=== PATIENT | male | born 1960 | race Caucasian/White ===

== ENCOUNTER 2020-10-20 06:30 | Emergency (ER) | payer OTHER ==
[~2020-10-20 06:30] MED LIST: FLOMAX 0.4 MG0.4 MG PO; HUMALOG 75100 UNIT/M SC; LEVAQUIN750 MG PO; LIPITOR40 M1 PO; LOPRESSOR25 MG PO; METFORMIN HCL500 MG PO; NAPROSYN375 MG PO; NORCO 5-325 TA1 EACH PO; NORVASC5 MG PO; ONDANSETRON ODT4 MG PO; PRINIVIL10 MG PO; PROTONIX 40MG T40 MG PO
[2020-10-20 07:28] LABS: BASOPHIL 0.9 % (0-2); EOSINOPHIL 0.1 % (0-5); HCT 43.1 % (42.0-52.0); HGB 14.1 g/dl (13.2-18.0); LYMPHOCYTE 14.7 % (15-48); MCH 29.6 pg (25.0-31.0); MCHC 32.7 g/dL (32.0-36.0); MCV 90.4 fL (78.0-100.0); MONOCYTE 8.2 % (0-12); MPV 11.5 fL (6.0-9.5); NEUTROPHIL 75.7 % (41-80); NRBC 0; PLT 171 K/uL (150-400); RBC 4.77 M/uL (4.70-6.00); RDW 12.9 % (11.5-14.0)
[2020-10-20 07:45] LABS: ALBUMIN 3.5 g/dL (3.4-5.0); ALKALINE PHOSHATASE 64 U/L (46-116); ALT 15 U/L (16-63); AST 19 U/L (15-37); BILIRUBIN - TOTAL 0.4 mg/dL (0.2-1.0); BUN 27 mg/dL (7-18); BUN/CREAT RATIO (CALC) 23.3 RATIO; CHLORIDE 106 mmol/L (98-107); CO2 (BICARBONATE) 27 mmol/L (21-32); CPK 129 U/L (39-308); CREATININE 1.16 mg/dL (0.67-1.17); GLOBULIN (CALCULATION) 3.4 g/dL; GLUCOSE 103 mg/dL (74-106); LIPASE 98 U/L (73-393); MAGNESIUM 1.6 mg/dL (1.8-2.4); POTASSIUM 4.7 mmol/L (3.5-5.1); TOTAL PROTEIN 6.9 g/dL (6.4-8.2)
[2020-10-20 07:47] LABS: INR 0.96 (0.9-1.2); PROTHROMBIN TIME 12.2 SECONDS (11.8-13.4); PTT 23.6 SECONDS (24.4-34.7)
[2020-10-20 08:33] LABS: BILIRUBIN NEGATIVE (NEGATIVE); BLOOD NEGATIVE Ery/uL (NEGATIVE); CLARITY CLEAR (CLEAR); COLOR YELLOW (YELLOW); GLUCOSE (U) 3+ mg/dL (NORMAL); LEUKOCYTES NEGATIVE Leu/uL (NEGATIVE); NITRITE NEGATIVE (NEGATIVE); PROTEIN TRACE (LOW) mg/dL (NEGATIVE); SPECIFIC GRAVITY 1.025 (1.001-1.030); UROBILINOGEN 0.2 mg/dL (0.2-1.0); pH 5.5 (5.0-9.0)
[2020-10-20 08:35] LABS: AMPHETAMINES NEGATIVE (NEGATIVE); BARBITURATES NEGATIVE (NEGATIVE); ECSTASY (MDMA) NEGATIVE (NEGATIVE); MARIJUANA (THC) NEGATIVE (NEGATIVE); METHADONE NEGATIVE (NEGATIVE); OPIATES NEGATIVE (NEGATIVE); OXYCODONE NEGATIVE (NEGATIVE)
[2020-10-20 08:55] LABS: BACTERIA TRACE; URINARY RBC RARE
== END 2020-10-20 13:45 | disposition other institution (70) ==
LOC: FER 06:30
PROVIDERS: Emergency Medicine
DX: I63.9 Cerebral infarction, unspecified (principal); Z20.822 Contact with and (suspected) exposure to COVID-19
CPT/HCPCS: 36415; 70450; 71045; 80053; 80305; 81001; 82550; 83690; 83735; 84145; 84484; 85025; 85610; 85730; 93005; G0480; J2405; U0002

== ENCOUNTER 2021-01-25 19:40 | Emergency (ER) | payer OTHER ==
[2021-01-25 21:05] LABS: EOSINOPHIL 2.1 % (0-5); HCT 41.6 % (42.0-52.0); HGB 13.6 g/dl (13.2-18.0); LYMPHOCYTE 32.2 % (15-48); MCH 29.9 pg (25.0-31.0); MCHC 32.7 g/dL (32.0-36.0); MCV 91.4 fL (78.0-100.0); MONOCYTE 13.3 % (0-12); MPV 11.8 fL (6.0-9.5); NEUTROPHIL 51.1 % (41-80); NRBC 0; PLT 171 K/uL (150-400); RBC 4.55 M/uL (4.70-6.00); RDW 13.2 % (11.5-14.0); WBC 7.2 K/uL (4.0-10.5)
[2021-01-25 21:26] LABS: ALBUMIN 3.5 g/dL (3.4-5.0); BILIRUBIN - TOTAL 0.5 mg/dL (0.2-1.0); CREATININE 1.27 mg/dL (0.67-1.17); GLOBULIN (CALCULATION) 3.2 g/dL; MAGNESIUM 2.2 mg/dL (1.8-2.4); POTASSIUM 4.4 mmol/L (3.5-5.1); TOTAL PROTEIN 6.7 g/dL (6.4-8.2)
== END 2021-01-25 22:45 | disposition home or self-care (01) ==
LOC: FER 19:40
PROVIDERS: Emergency Medicine
DX: E11.22 Type 2 diabetes mellitus with diabetic chronic kidney disease (principal); E11.65 Type 2 diabetes mellitus with hyperglycemia; I12.9 Hypertensive chronic kidney disease with stage 1 through stage 4 chronic kidney disease, or unspecified chronic kidney disease; N18.9 Chronic kidney disease, unspecified
CPT/HCPCS: 36415; 70450; 71045; 80053; 83735; 83880; 84443; 85025; 93005; J1940

== ENCOUNTER 2021-09-18 15:46 | Emergency (ER) | payer OTHER ==
[2021-09-18 16:59] LABS: BASOPHIL 1.1 % (0-2); EOSINOPHIL 1.6 % (0-5); HGB 14.7 g/dl (13.2-18.0); LYMPHOCYTE 30.7 % (15-48); MCH 30.2 pg (25.0-31.0); MCHC 33.4 g/dL (32.0-36.0); MCV 90.5 fL (78.0-100.0); MONOCYTE 10.4 % (0-12); MPV 10.7 fL (6.0-9.5); NEUTROPHIL 55.9 % (41-80); NRBC 0; PLT 205 K/uL (150-400); RBC 4.86 M/uL (4.70-6.00); RDW 12.8 % (11.5-14.0); WBC 8.9 K/uL (4.0-10.5)
[2021-09-18 17:07] LABS: INR 0.96 (0.9-1.2); PROTHROMBIN TIME 12.2 SECONDS (11.8-13.4); PTT 24.8 SECONDS (24.4-34.7)
[2021-09-18 17:17] LABS: ALBUMIN 3.7 g/dL (3.4-5.0); BILIRUBIN - TOTAL 0.5 mg/dL (0.2-1.0); BUN/CREAT RATIO (CALC) 18.1 RATIO; CREATININE 1.49 mg/dL (0.67-1.17); GLOBULIN (CALCULATION) 3.5 g/dL; POTASSIUM 4.1 mmol/L (3.5-5.1); TOTAL PROTEIN 7.2 g/dL (6.4-8.2)
[2021-09-18] MEDS ORDERED: ROBAXIN750 MG PO ×2 (18:55→19:22)
[2021-09-18] MEDS ORDERED: NORCO 5-325 TA1 EACH PO ×2 (18:55→19:22)
== END 2021-09-18 19:25 | disposition home or self-care (01) ==
LOC: FER 15:46
PROVIDERS: Emergency Medicine
DX: R07.89 Other chest pain (principal); M54.12 Radiculopathy, cervical region; I25.2 Old myocardial infarction; I10 Essential (primary) hypertension; E11.9 Type 2 diabetes mellitus without complications; Z95.5 Presence of coronary angioplasty implant and graft; Z28.310 Unvaccinated for COVID-19
CPT/HCPCS: 36415; 71045; 80053; 84484; 85025; 85610; 85730; 93005; J1170; J2405